=== PATIENT | male | born 1955 | race Caucasian/White ===

== ENCOUNTER 2016-06-25 15:42 | Emergency (ER) | payer OTHER ==
[~2016-06-25] VITALS: Ht 188 cm; Wt 98.1 kg
[2016-06-25 16:23] LABS: HEMATOCRIT 42.1 % (38.0-50.0); MCH 30.1 PG (29.0-34.0); MCHC 33.7 G/DL (30.0-36.0); MCV 89.4 FL (86-99); MEAN PLAT.VOLUME 10.5 uM^3 (9.0-12.4); PLATELET COUNT 247 K/uL (156-360); RBC DIS.WIDTH-CV 13.1 % (11.8-14.6); RBC DIS.WIDTH-SD 42.3 % (39-53); RED BLOOD COUNT 4.71 M/uL (4.00-5.50); WHITE BLOOD COUNT 5.8 K/uL (4.1-10.2)
[2016-06-25 16:31] LABS: CHLORIDE 103 mEq/L (99-109); POTASSIUM 4.3 mEq/L (3.7-5.4); SODIUM 137 mEq/L (136-147)
[2016-06-25 16:33] LABS: GLUCOSE 104 mg/dL (70-99)
[2016-06-25 16:35] LABS: ANION GAP 8 MEQ/L (2-14)
[2016-06-25 16:37] LABS: GFR ESTIMATE (CALCULATED) > 59 mL/min/
[2016-06-25 16:38] LABS: UREA NITROGEN (BUN) 10 mg/dL (9-23)
[2016-06-25 16:44] LABS: TROP-I INTERPRETATION NEGATIVE; TROPONIN-I < 0.01 ng/mL (0.0-0.30)
[2016-06-25] MEDS ORDERED: ASPIRIN81 M2 PO (16:52)
[2016-06-25] MEDS ORDERED: DAILY VALUE1 EACH PO (16:52)
[2016-06-25] MEDS ORDERED: XANAX0.5 MG PO (16:53)
[2016-06-25] MEDS ORDERED: OMEPRAZOLE40 M1 PO (16:53)
[2016-06-25 18:23] LABS: TROP-I INTERPRETATION NEGATIVE; TROPONIN-I < 0.01 ng/mL (0.0-0.30)
[2016-06-25 18:54] VITALS: BP 147/88
== END 2016-06-25 19:16 | disposition home or self-care (01) ==
LOC: EME 15:42
PROVIDERS: Nurse Practitioner Family
DX: R07.9 Chest pain, unspecified (principal); Z79.82 Long term (current) use of aspirin; Z87.891 Personal history of nicotine dependence; Z88.4 Allergy status to anesthetic agent; Z88.6 Allergy status to analgesic agent
CPT/HCPCS: 71020; 80048; 84484; 85027; 93005; 99281; 99284

== ENCOUNTER 2017-01-30 14:25 | Emergency (ER) | payer OTHER ==
[~2017-01-30] VITALS: Ht 188 cm; Wt 93.8 kg
[~2017-01-30 14:25] MED LIST: ASPIRIN81 M2 PO; DAILY VALUE1 EACH PO; OMEPRAZOLE40 M1 PO; XANAX0.5 MG PO
[2017-01-30 16:00] LABS: ADD MIUA? NO; BILIRUBIN NEGATIVE; BLOOD NEGATIVE; COLOR STRAW ((YELLOW)); GLUCOSE (STRIP) NEGATIVE; KETONES NEGATIVE; LEUKOCYTES NEGATIVE; NITRITE NEGATIVE; PROTEIN (STRIP) NEGATIVE; SPECIFIC GRAVITY 1.004 (1.000-1.030); UROBILINOGEN 0.2 MG/DL (0.2-1.0)
[2017-01-30 16:11] LABS: MCH 29.7 PG (29.0-34.0); MCHC 32.9 G/DL (30.0-36.0); MCV 90.4 FL (86-99); MEAN PLAT.VOLUME 10.8 uM^3 (9.0-12.4); PLATELET COUNT 243 K/uL (156-360); RBC DIS.WIDTH-CV 13.1 % (11.8-14.6); RBC DIS.WIDTH-SD 43.6 % (39-53); RED BLOOD COUNT 4.98 M/uL (4.00-5.50); WHITE BLOOD COUNT 9.1 K/uL (4.1-10.2)
[2017-01-30 16:22] LABS: CHLORIDE 106 mEq/L (99-109); POTASSIUM 4.3 mEq/L (3.7-5.4); SODIUM 140 mEq/L (136-147)
[2017-01-30 16:23] LABS: GLUCOSE 102 mg/dL (70-99)
[2017-01-30 16:25] LABS: ANION GAP 9 MEQ/L (2-14)
[2017-01-30 16:27] LABS: GFR ESTIMATE (CALCULATED) > 59 mL/min/
[2017-01-30 16:28] LABS: UREA NITROGEN (BUN) 9 mg/dL (9-23)
[2017-01-30 16:32] LABS: TROP-I INTERPRETATION NEGATIVE; TROPONIN-I < 0.01 ng/mL (0.0-0.30)
[2017-01-30 18:00] VITALS: BP 139/84
== END 2017-01-30 18:02 | disposition home or self-care (01) ==
LOC: EME 14:25
PROVIDERS: Nurse Practitioner Family
DX: I49.3 Ventricular premature depolarization (principal); R42 Dizziness and giddiness; Z79.82 Long term (current) use of aspirin; Z90.49 Acquired absence of other specified parts of digestive tract; Z87.891 Personal history of nicotine dependence
CPT/HCPCS: 71020; 80048; 81003; 84439; 84443; 84484; 85027; 93005; 99281; 99284